=== PATIENT | male | born 1965 | race African-American/Black ===

== ENCOUNTER → 2018-07-07 | Outpatient (CLI) | payer OTHER ==
--- NOTE | 2018-07-07 11:14 | RAD ---
Two-view right knee dated 07/07/2018. No comparison available. Clinical data indication: Right knee pain. Chronic. FINDINGS: 2 views right knee show normal bony alignment. No displaced fracture. No acute osseous or articular abnormality. Mild tricompartmental hypertrophic changes. No apparent joint effusion or loose body. IMPRESSION: No acute radiographic abnormality. Electronically signed by: Henri Alex MD (07/07/2018 11:11 AM) [id number]
--- NOTE | 2018-07-07 11:21 | RAD ---
EXAM: Lumbar spine, 2 views. HISTORY: Pain. COMPARISON: None. FINDINGS: Frontal and lateral views of the lumbar spine are obtained. There is degenerative endplate remodeling with disc space narrowing and facet arthropathy at L5-S1. There is endplate osteophytosis at additional lower thoracic and lumbar levels. The vertebral bodies are normal in height. There is no listhesis. IMPRESSION: 1. No acute osseous finding. 2. Multilevel degenerative change, primarily at the lumbosacral junction. Electronically signed by: Katerina Bassett MD (07/07/2018 11:18 AM) [place] [id number]
== END | disposition home or self-care (01) ==
LOC: RAD 10:32
PROVIDERS: ATTEND Internal Medicine Infectious Disease
DX: M47.897 Other spondylosis, lumbosacral region (principal); M48.061 Spinal stenosis, lumbar region without neurogenic claudication; M12.88 Other specific arthropathies, not elsewhere classified, other specified site
CPT/HCPCS: 72100; 73560